=== PATIENT | female | born 1935 | race Caucasian/White ===

== ENCOUNTER → 2016-03-06 | Outpatient (CLI) | payer OTHER ==
[~2016-03-06] MED LIST: AMLODIPINE BESY10 MG PO; CIPROFLOXACIN500 M3 PO; DIGESTIVE ADVANTAGE PO; FLAGYL500 MG PO; HYDROCHLOROTHIA25 M1 PO; LIPITOR10 MG PO; LISINOPRIL40 MG PO; LOMOTIL TABLET1 EACH PO; MUCINEX TA600 MG/TA1 PO; PROBIOTIC1 EACH PO; SINGULAIR 10 MG10 M1 PO; TOPROL XL50 MG PO; ZYRTEC10 M2 PO; [UNRECOGNIZED DRUG - OTHER]; [UNRECOGNIZED DRUG - OTHER] PO
== END ==
LOC: RAD 12:05
DX: R06.00 Dyspnea, unspecified (principal); M25.78 Osteophyte, vertebrae; M40.294 Other kyphosis, thoracic region

== ENCOUNTER → 2016-05-24 | Outpatient (CLI) | payer OTHER | LOC: CAT 04:30 | DX: R91.1 Solitary pulmonary nodule (principal) ==

== ENCOUNTER → 2016-05-28 | Outpatient (CLI) | payer OTHER ==
[~2016-05-28] MED LIST changes: +SUPER B-50 COM1 EACH PO; +VITAMIN D35000 UNIT PO; +ZESTRIL40 MG PO
--- NOTE | ~2016-05-28 | CNG ---
[facility] [place] [address] CYTO-NONGYN REPORT PROCEDURE Name: RENEE HERNANDEZ Room #: REG [facility]#: [id number] Admission: 05/28/16 Date of : 37 Discharge: Report #: [id number] Path Case #: [id number] CYTOPATHOLOGY REPORT COLLECTION DATE: 05/28/2016 RECEIVED DATE: 05/28/2016 SUBMITTING PHYS: Dr. Teddy Andrade OTHER PHYS: Dr. Phani Mccrary CLINICAL HISTORY: Pulm nodules. Please see [id number] as well. SPECIMEN(S) RECEIVED: A.Bronchial brushings, RLL B.Bronchial brush rinse, RLL C.Bronchoalveolar lavage, RLL * * * * * * * * * * * * FINAL DIAGNOSIS: A. Lung, right lower lobe, bronchial brushings: No malignant epithelial cells identified. - Reactive bronchial epithelial cells and inflammatory cells. B. Lung, right lower lobe, bronchial brush rinse: No malignant epithelial cells identified. - Reactive bronchial epithelial cells and inflammatory cells. C. Lung, right lower lobe, bronchoalveolar lavage: No malignant epithelial cells identified. -Reactive bronchial epithelial cells, alveolar macrophages and squamous cells identified. COMMENT: [facility] (Part B only): Dr. Liz Schultz. (IUV:csd; d/t: 05/29/2016) PATHOLOGIST: Cyn Vanessa M.D. REPORT ELECTRONICALLY SIGNED BY: Cyn Vanessa M.D. DATE/TIME: 05/30/2016 11:44 * * * * * * * * * * * * GROSS PATHOLOGY: A. Bronchial brushings, RLL: The specimen is labeled "Renee Hernandez" and consists of four fixed slides. B. Bronchial brush rinse, RLL: The specimen is labeled "Renee Hernandez" and consists of a brush tip in fixative. One ThinPrep slide was prepared. C. Bronchoalveolar lavage, RLL: The specimen is submitted unfixed, labeled "Renee Hernandez". Received by the Cytology Department is five mL of cloudy red fluid. One ThinPrep slide was prepared. (clt 05.28.2016) [address] [address] CYTO-NONGYN REPORT PROCEDURE Name: RENEE HERNANDEZ Room #: [facility].#: [id number] Admission: 05/28/16 Date of : 37 Discharge: Report #: [id number] Path Case #: [id number] REFUSE COLLECTOR(S): CHRISTO Desai(ASCP) INITIAL CPT CODE(S): A; 74094 B; 59121 C; 21700 Professional services performed by [facility] at [address] , [place] [address] Technical services performed by [facility] at [address] [place] [address]., [address], [place] [address]. [facility], [address] [place] [address] PHONE: [phone] DIRECTOR: Kyaw Hurtado M.D. * * * END OF REPORT * * *
--- NOTE | ~2016-05-28 | S ---
[facility] [place] [address] SURGICAL PATH RPT PROCEDURE Name: RENEE HERNANDEZ Room #: REG [facility].#: [id number] Admission: 05/28/16 Date of : 37 Discharge: Report #: [id number] Path Case #: [id number] PATHOLOGY REPORT COLLECTION DATE: 05/28/2016 RECEIVED DATE: 05/29/2016 SUBMITTING PHYS: Dr. Teddy Andrade OTHER PHYS: Dr. Phani Mccrary SPECIMEN(S) RECEIVED: A.RLL biopsy forceps * * * * * * * * * * * * FINAL DIAGNOSIS: "RLL biopsy forceps," transbronchial biopsy: - Alveolated lung tissue with reactive changes including chronic inflammation, reactive pneumocytes, pigmented alveolar macrophages, and calcified bronchial cartilage. (see comment) COMMENT: No epithelial malignancy is seen. Please see also the cytology specimen ([id number]). Clinical and radiographic correlation is recommended. A client service representative slide of the current case is co-reviewed with Dr. Cyn Vanessa. (MIKEW:; d/t: 05/30/16) PATHOLOGIST: Liz Schultz M.D. REPORT ELECTRONICALLY SIGNED BY: Liz Schultz M.D. DATE/TIME: 05/30/2016 16:26 * * * * * * * * * * * * GROSS PATHOLOGY: Received in formalin labeled "Renee Hernandez, RLL biopsy forceps," are multiple segments of warner soft tissue measuring 0.4 cm in aggregate dimensions and each measuring 0.1 cm. The specimen is submitted entirely in cassette A1. (SNA; 05/29/2016) CLINICAL HISTORY: None provided INITIAL CPT CODE(S): A; 22053 Professional services performed by [facility] at [facility] [address] [place] [address] SURGICAL PATH RPT PROCEDURE Name: RENEE HERNANDEZ Room #: REG [facility] Adam.#: [id number] Admission: 05/28/16 Date of : 37 Discharge: Report #: [id number] Path Case #: [id number] [facility] [address], [place] [address] Technical services performed by [facility] at [address] [place] [address], [facility] [address] [address]. [facility] [address] [place] [address] PHONE: [phone] DIRECTOR: Kywa Hurtado M.D. * * * END OF REPORT * * *
--- NOTE | ~2016-05-28 | P ---
[facility] [place] [address] PROCEDURE REPORT Name: RENEE HARGROVE Room #: REG [facility]#: [id number] Admission: 05/28/16 Attend Phys: Teddy Andrade MD Discharge: Date of : 37 Report #: [id number] THIS REPORT FOR: //name// CC: Phani Andrade DATE OF SERVICE: 05/28/2016 PROCEDURE: Fiberoptic bronchoscopy with transbronchial biopsies of the right lower lobe mass as well as brushings with fluoroscopic guidance. INDICATION: Multiple pulmonary nodules, ASA classification class II. PROCEDURE NOTATION: I discussed risks, benefits of planned procedure with the patient. After obtaining informed consent, she was brought to fluoroscopy where she was placed on continuous cardiopulmonary monitoring and supplemental oxygen. She was then given 4% lidocaine nebulized to anesthetize the upper respiratory tract. Once accomplished, the patient received conscious sedation. A total of 3.5 mg of Versed were titrated during the procedure to provide adequate sedation. Once accomplished, bronchoscope was passed through an oral biteblock until the vocal cords were visualized. Lidocaine 1% was instilled in the vocal cords to provide topical anesthesia. Bronchoscope was then passed in the trachea, 1% lidocaine was instilled in the tracheobronchial tree bilaterally to provide topical anesthesia. Once complete airways were surveyed. FINDINGS: Mainstem, lobar, segmental and subsegmental bronchi were all explored including the trachea. All appeared patent with no significant anatomic variation or disease. Fluoroscopic guidance was utilized to obtain several cytologic brushings and then forceps biopsies in the area of the largest lesion which is in the superior segment of the right lower lobe. There was some difficulty with the video on bronchoscopy. So the bronchoscope was removed half way through the procedure. A portable bronchoscope that was disposable was then used to finish the procedure. The patient tolerated well. No noted complications. Minimal blood loss. Total fluoroscopy time 2.0 minutes. IMPRESSION: Multiple pulmonary nodules, the largest of which was in the superior segment of the right lower lobe, status post bronchoscopy, a transbronchial biopsy, cytologic brushings and washings. PLAN: Await microbiologic, cytologic and histopathologic tests. By: 1429 0138 Teddy Andrade MD /nt
== END | disposition home or self-care (01) ==
LOC: SPEC 08:09
DX: J98.4 Other disorders of lung (principal)

== ENCOUNTER → 2016-08-27 | Outpatient (CLI) | payer OTHER | LOC: CAT 09:55 → EDSTATUS 15:04 | DX: I70.90 Unspecified atherosclerosis (principal); I71.4 Abdominal aortic aneurysm, without rupture; R91.8 Other nonspecific abnormal finding of lung field ==

== ENCOUNTER → 2017-01-11 | Outpatient (CLI) | payer OTHER | LOC: CAT 11:07 | DX: I25.10 Atherosclerotic heart disease of native coronary artery without angina pectoris (principal); R91.8 Other nonspecific abnormal finding of lung field; I31.3 Pericardial effusion (noninflammatory); I10 Essential (primary) hypertension; J44.9 Chronic obstructive pulmonary disease, unspecified; Z98.890 Other specified postprocedural states; Z87.891 Personal history of nicotine dependence ==

== ENCOUNTER → 2017-03-15 | Outpatient (CLI) | payer OTHER ==
[~2017-03-15] MED LIST changes: +ACETAMINOPHEN-1 EAC1 PO; +ATIVAN0.5 MG PO; +BENZONATATE100 MG PO; +LEVALBUTER1.25 MG/0. INH; +LOPERAMIDE 2 MG2 M1 PO
== END ==
LOC: NUC 09:58
DX: M81.0 Age-related osteoporosis without current pathological fracture (principal); E28.8 Other ovarian dysfunction; J41.8 Mixed simple and mucopurulent chronic bronchitis

== ENCOUNTER → 2017-04-11 | Outpatient (CLI) | payer OTHER | LOC: RAD 11:09 | DX: R10.2 Pelvic and perineal pain (principal) ==

== ENCOUNTER → 2017-05-20 | Outpatient (CLI) | payer OTHER ==
[~2017-05-20] MED LIST changes: -ACETAMINOPHEN-1 EAC1 PO; -ATIVAN0.5 MG PO; -BENZONATATE100 MG PO; -LEVALBUTER1.25 MG/0. INH; -LOPERAMIDE 2 MG2 M1 PO
[2017-05-20 08:19] LABS: CALCIUM 9.2 mg/dL (8.5-10.1); CREATININE 1.4 mg/dL (0.6-1.0); POTASSIUM 3.9 mmol/L (3.5-5.1)
== END ==
LOC: CAT 05:57
PROVIDERS: Family Medicine
DX: Z09 Encounter for follow-up examination after completed treatment for conditions other than malignant neoplasm (principal); R91.1 Solitary pulmonary nodule

== ENCOUNTER 2017-07-17 09:15 | Inpatient (IN) | payer OTHER ==
[~2017-07-17] VITALS: Ht 160 cm; Wt 38.6 kg
--- NOTE | ~2017-07-17 | PATH ---
[facility] [place] [address] PATHOLOGY RPT PROCEDURE Name: RENEE HARGROVE Room #: 226-P ADM IN M.R.#: [id number] Admission: 07/17/17 Date of : 37 Discharge: Report #: [id number] Path Case #: [id number] Note [facility] Accession Number: [id number] TESTS RESULT FLAG UNITS REF RANGE LAB Clinician Provided Cytology Information No. of containers..01 Other (Miscellaneous) Source: SPUTUM DIAGNOSIS: 02 SPUTUM NEGATIVE FOR MALIGNANT CELLS. PULMONARY MACROPHAGES (DUST CELLS) ARE PRESENT. NORMAL BRONCHIAL CELLS AND MACROPHAGES ARE PRESENT. FUNGAL ORGANISMS MORPHOLOGICALLY CONSISTENT WITH "JONA" SPECIES ARE PRESENT. Signed out by: 02 Cyn Vanessa MD, Pathologist NPI- [id number] Performed by: Bong Reynaga, Nurse Head ([facility]) Gross description: 01 2ML, YELLOW TINTED, CLOUDY /LCS FLAG LEGEND: L-Low Normal,H-High Normal,LL-Alert Low,HH-Alert High <-Panic Low,>-Panic High,A-Abnormal,AA-Critical Abnormal Performed at: [address] [place] [address] Bridger Menchaca MD, [address] [address] Cyn Vanessa MD, Performed at: [address], [place], [place] [address] MD Bridger Menchaca MD Phone: [phone]
[2017-07-17 10:00] VITALS: BP 181/48
[2017-07-17 13:49] LABS: HEMATOCRIT 37.7 % (37.0-47.0); HEMOGLOBIN 12.8 gm/dL (12.0-15.0); MCH 32.3 pg (26.0-34.0); MCHC 33.9 g/dL (28.0-37.0); MCV 95.1 fL (80.0-100.0); RBC 3.96 mil/uL (4.20-5.00); RDW 13.9 % (10.5-14.5); WBC 10.4 thou/uL (4.0-11.0)
[2017-07-17 13:54] LABS: ALBUMIN 3.5 g/dL (3.4-5.0); CALCIUM 9.7 mg/dL (8.5-10.1); CREATININE 1.1 mg/dL (0.6-1.0); POTASSIUM 3.8 mmol/L (3.5-5.1); TOTAL BILIRUBIN 0.5 mg/dL (<0.1-1.0); TOTAL PROTEIN 7.6 g/dL (6.4-8.2)
[2017-07-17 16:17] VITALS: BP 174/49
[2017-07-17 20:00] VITALS: BP 128/54
[2017-07-18 05:24] VITALS: BP 153/59
[2017-07-18 08:00] VITALS: BP 167/48
[2017-07-18 18:00] VITALS: BP 170/47
[2017-07-18 19:35] VITALS: BP 144/55
[2017-07-19 04:12] VITALS: BP 144/549
[2017-07-19 06:50] LABS: HEMATOCRIT 31.9 % (37.0-47.0); MCH 32.4 pg (26.0-34.0); MCV 95.3 fL (80.0-100.0); RBC 3.35 mil/uL (4.20-5.00); WBC 17.3 thou/uL (4.0-11.0)
[2017-07-19 06:51] LABS: HEMOGLOBIN 10.8 gm/dL (12.0-15.0)
[2017-07-19 07:05] LABS: CALCIUM 8.1 mg/dL (8.5-10.1); CREATININE 1.1 mg/dL (0.6-1.0); POTASSIUM 3.7 mmol/L (3.5-5.1)
[2017-07-19 08:30] VITALS: BP 161/68
[2017-07-19 18:23] VITALS: BP 168/63
[2017-07-19 20:03] VITALS: BP 169/64
[2017-07-20 08:21] LABS: HEMATOCRIT 38.9 % (37.0-47.0); HEMOGLOBIN 12.7 gm/dL (12.0-15.0); MCH 31.3 pg (26.0-34.0); MCHC 32.5 g/dL (28.0-37.0); MCV 96.1 fL (80.0-100.0); RBC 4.05 mil/uL (4.20-5.00); RDW 14.3 % (10.5-14.5)
[2017-07-20 08:25] VITALS: BP 151/49
[2017-07-20 08:32] LABS: CALCIUM 8.4 mg/dL (8.5-10.1); CREATININE 1.2 mg/dL (0.6-1.0); POTASSIUM 3.8 mmol/L (3.5-5.1)
[2017-07-20 20:00] VITALS: BP 158/71
[2017-07-21 07:45] VITALS: BP 168/61
[2017-07-21 10:13] LABS: HEMATOCRIT 35.8 % (37.0-47.0); HEMOGLOBIN 11.9 gm/dL (12.0-15.0); MCH 31.6 pg (26.0-34.0); MCHC 33.3 g/dL (28.0-37.0); MCV 94.8 fL (80.0-100.0); RBC 3.78 mil/uL (4.20-5.00); RDW 14.1 % (10.5-14.5); WBC 14.6 thou/uL (4.0-11.0)
[2017-07-21 20:00] VITALS: BP 172/59
[2017-07-22 07:50] VITALS: BP 174/56
[2017-07-22 08:22] LABS: BE(vivo) -1.8 mmol/L (-2 to +3); HCO3 21.7 mmol/L (22.0-26.0); PCO2 33.2 mmHg (35.0-45.0); PO2 66.1 mmHg (80.0-100.0); pH 7.434 (7.360-7.450); sO2 93.9 % (92.0-98.0)
[2017-07-22 08:25] LABS: CALCIUM 7.8 mg/dL (8.5-10.1); POTASSIUM 3.8 mmol/L (3.5-5.1)
[2017-07-22 20:12] VITALS: BP 162/115
[2017-07-22 23:30] VITALS: BP 172/61
[2017-07-23 03:59] VITALS: BP 155/68
[2017-07-23 08:12] VITALS: BP 150/61
[2017-07-23 18:07] LABS: HISTOPLASMA MYCELIAL-ID Negative (Negative)
[2017-07-23 20:09] LABS: HISTOPLASMA MYCELIAL-CF Negative (Neg:<1:2)
[2017-07-23 20:16] VITALS: BP 182/55
[2017-07-24 07:50] VITALS: BP 186/75
[2017-07-24] MEDS ORDERED: ACETAMINOPHEN-1 EAC1 PO (11:22)
[2017-07-24] MEDS ORDERED: ATIVAN0.5 MG PO (11:22)
[2017-07-24] MEDS ORDERED: BENZONATATE100 MG PO (11:23)
== END 2017-07-24 16:39 | DRG 871 ==
LOC: 4E 09:15 → SICU 07-19 17:34
PROVIDERS: Family Medicine; Internal Medicine Pulmonary Disease
DX: A41.9 Sepsis, unspecified organism (principal); J18.1 Lobar pneumonia, unspecified organism; E43 Unspecified severe protein-calorie malnutrition; J96.01 Acute respiratory failure with hypoxia; J44.1 Chronic obstructive pulmonary disease with (acute) exacerbation; J44.0 Chronic obstructive pulmonary disease with (acute) lower respiratory infection; Z68.1 Body mass index [BMI] 19.9 or less, adult; F41.9 Anxiety disorder, unspecified; F17.210 Nicotine dependence, cigarettes, uncomplicated; Z88.8 Allergy status to other drugs, medicaments and biological substances
CPT/HCPCS: 10783; 15002

== ENCOUNTER 2017-10-28 15:24 | Inpatient (IN) | payer OTHER ==
[~2017-10-28] VITALS: Ht 157.5 cm; Wt 30.4 kg
--- NOTE | ~2017-10-28 | EKG ---
[address] [employer] [place] [address] ELECTROCARDIOGRAM REPORT Name: RENEE HARGROVE Room #: 450-P ADM IN M.R.#: [id number] Admission: 10/28/17 Attend Phys: Phani Mccrary MD Discharge: Date of : 37 Report #: [id number] THIS REPORT FOR: //name// [facility] ED Test Date: 2017-10-28 Test Time: 16:45:45 Pat Name: RENEE HARGROVE Department: Room: 450 Gender: F Pilot Instructor: ESTEFANIA : 1935 Requested By: Domenic Murillo Order Number: [id number] MD: Jony Reed Measurements Intervals [place] Rate: 89 P: 91 [place]: 124 QRS: 88 QRSD: 84 T: 62 QT: 346 QTc: 421 Interpretive Statements Sinus rhythm Probable left atrial enlargement Borderline right axis deviation Probable left ventricular hypertrophy No previous ECG available for comparison Electronically Signed On 11-01-2017 14:39:04 CDT by Jony Reed [email or web address] <ELECTRONICALLY SIGNED> By: Jony Reed MD 11/01/17 1439 1645 44 Jony Reed MD /BEE
--- NOTE | ~2017-10-28 | HC ---
[facility] [place] [address] CONSULTATION Name: RENEE HARGROVE Room #: 450-P ADM IN M.R.#: [id number] Admission: 10/28/17 Attend Phys: Phani Mccrary MD Discharge: Date of : 37 Report #: [id number] THIS REPORT FOR: //name// CC: Phani Mccrary MD PALLIATIVE CARE CONSULTATION REQUESTING PHYSICIAN: Dr. Phani Mccrary. CHIEF COMPLAINT: Metastatic lung cancer. HISTORY OF PRESENT ILLNESS: The patient is an 81-year-old female who presented today to [facility]. At the time of presentation, the patient was reporting of weakness throughout her body x 1 week. She was found to have multiple lung masses, right greater than left, with mediastinal hilar adenopathy and left supraclavicular involvement as well as multiple bony sclerotic lesions, likely significant for metastasis as well as multiple liver masses. Gallbladder mass also seen with a 6-mm dependent mass present. The patient had reported abdominal pain on presentation. 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 Unfortunately, the patient has been more confused than normal. Her friend, Larissa, is present at bedside and reports she was communicating normally approximately one week prior, but has had a significant decline since this time. The patient had the knowledge of lung cancer previously, but she is unable to retain the information of the metastasis as she has presently. The patient does have a daughter who has durable power of securities attorney. I am unable to reach her at this time. The patient reports that her pain is currently well managed. She denies significant air hunger. She denies significant other symptoms or concerns at this time. She is unable to fully again discuss with me with regards to her current care. PAST MEDICAL HISTORY: Significant for known history of lung cancer, history of aortic aneurysm with stent placement, peripheral vascular disease with stents placed in renal arteries and arterial graft to mesenteric artery. She has had a history of C. diff, osteoporosis, hyperlipidemia, hypertension and also COPD. PAST SURGICAL HISTORY: She has had multiple pins placed in hand and wrist in 2001, stents as placed above and grafts as placed above. FAMILY HISTORY: CVA, prostate cancer and psoriasis. SOCIAL HISTORY: She is a former smoker. She smoked for approximately 50 years, one pack per day. CODE STATUS: She is currently CPR goal per her status, but no intubation. MEDICATIONS: Lipitor, Singulair, Norvasc, Mucinex, Zyrtec, hydrochlorothiazide, [facility] [address] [place] [address] CONSULTATION Name: RENEE HARGROVE Room #: 450-[facility] [place] ..#: [id number] Admission: 10/28/17 Attend Phys: Phani Mccrary MD Discharge: Date of : 37 Report #: [id number] Toprol-XL, Zestril, D3 and vitamin B. ALLERGIES: ASPIRIN AND LACTOSE. REVIEW OF SYSTEMS: NEUROLOGIC: Difficult to obtain at this time due to her altered mentation. She does present with delirium and has poor attention level. CARDIOVASCULAR: She denies chest pain. RESPIRATORY: Denies specific shortness of breath, appears to be comfortable at this time. GENERAL: She reports pain, mostly in the abdominal area, although pain medication appears to be sufficiently healing . PHYSICAL EXAMINATION: VITAL SIGNS: Temperature 36.8, pulse 74, respirations 16, blood pressure 168/58 and 98% on nasal cannula. GENERAL: The patient is not alert, poor attention level. She is in no acute distress. HEENT: Extraocular muscles appear to be intact. Normocephalic, atraumatic. CARDIOVASCULAR: Regular rate and rhythm. RESPIRATORY: Diffusely clear to auscultation, although she does have minimal crackles, likely in bases. ABDOMEN: Soft, nontender to palpation x 4. Positive bowel sounds noted in all 4 quadrants. Actually, she does have some minimal right upper quadrant tenderness. LABORATORY DATA: Labs did include white blood cell 18.1. CBC otherwise unremarkable. Creatinine 1.2. AST 388, ALT 272. Her calcium was 13.8. ASSESSMENT AND PLAN: 1. Lung cancer with metastasis. At this current point in time, she has significant metastatic lesions throughout her body. I do feel she is appropriate for palliative care. She is unable to unfortunately retain her capacity for the medical decision making at this current point in time. I did try to discuss with daughter; however, I was unable to reach her via 2 phone numbers this evening. I will try to set up a meeting for further discussion with regards to care and will further assess whether the patient retains capacity at some future date. It did appear that the patient and daughter were interested in some aspect of hospice care according to the correctional casework specialist whom I have discussed with at this time. 2. Hypercalcemia due to lung cancer with metastasis. Again, overall the patient's prognosis is very poor. I do feel that she would benefit from an inpatient hospice stay given the likelihood of possible obstructive cholestatic lesion that she has at present. Again, we will discuss further when family is available or if the patient retains her capacity for decision making with regards to this nature. [facility] [address] [place] [address] CONSULTATION Name: RENEE HARGROVE Room #: 450-P ADM IN M.R.#: [id number] Admission: 10/28/17 Attend Phys: Phani Mccrary MD Discharge: Date of : 37 Report #: [id number] Thank you very much for this consultation. We will continue to follow along with the patient's care. By: 2330 0125 Renato Reed DO /adan
[~2017-10-28 15:24] MED LIST changes: +ACETAMINOPHEN-1 EAC1 PO; +ATIVAN0.5 MG PO; +BENZONATATE100 MG PO
[2017-10-28 15:25] VITALS: BP 131/64
[2017-10-28 16:13] LABS: ABSOLUTE NEUTROPHILS 16.2 thou/uL (1.4-8.2); BASOPHILS 0.1 % (0.0-2.0); LYMPHOCYTES 3.2 % (24.0-44.0); MCH 31.2 pg (26.0-34.0); MCV 91.6 fL (80.0-100.0); MONOCYTES 6.8 % (1.0-8.0); PLATELET COUNT 173 thou/uL (150-400); POLYS 89.9 % (36.0-66.0); RBC 4.47 mil/uL (4.20-5.00); RDW 14.1 % (10.5-14.5); WBC 18.1 thou/uL (4.0-11.0)
[2017-10-28 16:19] LABS: URINE BILIRUBIN NEGATIVE (Negative); URINE BLOOD 1+ (Negative); URINE CLARITY CLEAR; URINE COLOR YELLOW; URINE GLUCOSE-RANDOM* NEGATIVE (Negative); URINE KETONES NEGATIVE (Negative); URINE NITRITE-REFLEX NEGATIVE (Negative); URINE PROTEIN (DIPSTICK) 3+ (Negative); URINE SPECIFIC GRAVITY >= 1.030 (1.005-1.035); URINE UROBILINOGEN 0.2 E.U./dl (0.2-1.0)
[2017-10-28 16:21] LABS: CREATININE 1.2 mg/dL (0.6-1.0); POTASSIUM 3.9 mmol/L (3.5-5.1)
[2017-10-28 16:26] LABS: CALCIUM 13.8 mg/dL (8.5-10.1)
[2017-10-28 16:28] LABS: URINE LEUKOCYTES-REFLEX TRACE (Negative)
[2017-10-28 16:30] LABS: ALBUMIN 3.1 g/dL (3.4-5.0); TOTAL BILIRUBIN 0.8 mg/dL (<0.1-1.0); TOTAL PROTEIN 6.4 g/dL (6.4-8.2); TROPONIN-I 0.1 ng/mL (<0.06)
[2017-10-28 16:35] LABS: SQUAMOUS 0-3 Few /LPF (0-3)
[2017-10-28 16:36] LABS: BACTERIA-REFLEX None Seen /HPF (None Seen); CRYSTALS None Seen /LPF (None Seen); HYALINE CASTS 4-10 Moderate /LPF (None Seen); MUCUS >6 Heavy strn/LPF (None Seen); URINE RBC 3-10 Few /HPF (0-2); URINE WBC-REFLEX 6-15 Few /HPF (0-5); WBC CLUMPS Few (None Seen)
[2017-10-28] MEDS ORDERED: LEVALBUTER1.25 MG/0. INH (21:03)
[2017-10-28] MEDS ORDERED: LOPERAMIDE 2 MG2 M1 PO (23:17)
[2017-10-29 01:00] VITALS: BP 162/55
[2017-10-29 03:01] VITALS: BP 194/55
[2017-10-29 04:35] VITALS: BP 184/54
[2017-10-29 07:47] VITALS: BP 164/55
[2017-10-29 19:38] VITALS: BP 168/58
[2017-10-30 07:16] VITALS: BP 167/63
[2017-10-30 19:10] VITALS: BP 179/46
[2017-10-31 02:23] VITALS: BP 164/45
[2017-10-31 07:33] VITALS: BP 146/56
[2017-10-31 19:26] VITALS: BP 177/42
[2017-11-01 03:56] VITALS: BP 181/46
[2017-11-01 07:30] VITALS: BP 146/33
[2017-11-01 15:14] VITALS: BP 112/47
[2017-11-01 21:03] VITALS: BP 121/60
[2017-11-02 04:13] VITALS: BP 138/55
[2017-11-02 07:55] VITALS: BP 156/60
[2017-11-02 15:20] VITALS: BP 135/56
[2017-11-02 19:28] VITALS: BP 144/88
[2017-11-03 08:31] VITALS: BP 147/48
[2017-11-03 16:35] VITALS: BP 134/48
[2017-11-03 19:05] VITALS: BP 141/65
[2017-11-04 11:53] VITALS: BP 141/65
== END 2017-11-04 07:40 | DRG 871 ==
LOC: ER 15:24 → ICU 17:34 → 4W 17:34 → EROBS 17:34 → ICU 23:24 → 4W 10-29 17:43
PROVIDERS: Physician Assistant
DX: A41.9 Sepsis, unspecified organism (principal); E43 Unspecified severe protein-calorie malnutrition; J18.9 Pneumonia, unspecified organism; N39.0 Urinary tract infection, site not specified; C34.90 Malignant neoplasm of unspecified part of unspecified bronchus or lung; C78.7 Secondary malignant neoplasm of liver and intrahepatic bile duct; C79.51 Secondary malignant neoplasm of bone; Z68.1 Body mass index [BMI] 19.9 or less, adult; J44.0 Chronic obstructive pulmonary disease with (acute) lower respiratory infection; J44.9 Chronic obstructive pulmonary disease, unspecified; F17.210 Nicotine dependence, cigarettes, uncomplicated; E83.52 Hypercalcemia; R91.8 Other nonspecific abnormal finding of lung field; I73.9 Peripheral vascular disease, unspecified; M81.0 Age-related osteoporosis without current pathological fracture; E78.5 Hyperlipidemia, unspecified; I10 Essential (primary) hypertension; Z99.81 Dependence on supplemental oxygen; Z79.899 Other long term (current) drug therapy; Z88.6 Allergy status to analgesic agent; Z82.3 Family history of stroke; Z80.42 Family history of malignant neoplasm of prostate; Z84.89 Family history of other specified conditions; Z91.011 Allergy to milk products
CPT/HCPCS: 10040; 10203